=== PATIENT | female | born 1935 | race Caucasian/White ===

== ENCOUNTER 2017-12-03 15:01 | Outpatient (CLI) | payer OTHER | END 2017-12-03 15:09 | disposition home or self-care (01) | LOC: EDBD 15:01 → MAMO-SONO 15:01 | DX: Z12.31 Encounter for screening mammogram for malignant neoplasm of breast (principal); Z87.898 Personal history of other specified conditions; Z12.39 Encounter for other screening for malignant neoplasm of breast ==

== ENCOUNTER 2018-04-09 19:00 | Emergency (ER) | payer OTHER ==
[~2018-04-09] VITALS: Ht 152.4 cm; Wt 59.0 kg
[2018-04-09] MEDS ORDERED: JANUMET 50-5001 EACH (19:23)
[2018-04-09] MEDS ORDERED: COZAAR25 MG (19:23)
[2018-04-09] MEDS ORDERED: SIMVASTATIN20 MG (19:24)
[2018-04-09] MEDS ORDERED: SYNTHROID88 MCG (19:24)
[2018-04-09] MEDS ORDERED: ZOLOFT20 MG/1 ML (19:24)
[2018-04-09] MEDS ORDERED: ASPIR 8181 MG (19:24)
== END 2018-04-09 23:09 | disposition home or self-care (01) ==
LOC: ER 19:00
DX: S20.212A Contusion of left front wall of thorax, initial encounter (principal); S40.012A Contusion of left shoulder, initial encounter; S20.412A Abrasion of left back wall of thorax, initial encounter; W20.8XXA Other cause of strike by thrown, projected or falling object, initial encounter; Y93.89 Activity, other specified; Y92.018 Other place in single-family (private) house as the place of occurrence of the external cause; Y99.8 Other external cause status

== ENCOUNTER 2020-05-27 10:18 | Outpatient (CLI) | payer OTHER ==
[~2020-05-27 10:18] MED LIST: ASPIR 8181 MG; COZAAR25 MG; JANUMET 50-5001 EACH; SIMVASTATIN20 MG; SYNTHROID88 MCG; ZOLOFT20 MG/1 ML
== END 2020-05-27 10:24 | disposition home or self-care (01) ==
LOC: RAD 10:18
PROVIDERS: ATTEND Neuromusculoskeletal Medicine, Sports Medicine
DX: M77.32 Calcaneal spur, left foot (principal); M77.31 Calcaneal spur, right foot; S90.30XA Contusion of unspecified foot, initial encounter; M67.00 Short Achilles tendon (acquired), unspecified ankle; M20.41 Other hammer toe(s) (acquired), right foot; M20.42 Other hammer toe(s) (acquired), left foot

== ENCOUNTER 2020-11-14 09:51 | Outpatient (CLI) | payer OTHER | END 2020-11-14 10:45 | disposition home or self-care (01) | LOC: SONOGRAMA 09:51 | DX: N28.89 Other specified disorders of kidney and ureter (principal); N18.30 Chronic kidney disease, stage 3 unspecified; I12.9 Hypertensive chronic kidney disease with stage 1 through stage 4 chronic kidney disease, or unspecified chronic kidney disease ==

== ENCOUNTER 2021-02-22 08:05 | Outpatient (CLI) | payer OTHER | END 2021-02-22 08:10 | disposition home or self-care (01) | LOC: RAD 08:05 | DX: R07.89 Other chest pain (principal) ==

== ENCOUNTER 2021-05-22 08:36 | Outpatient (CLI) | payer OTHER | END 2021-05-22 08:39 | disposition home or self-care (01) | LOC: NUCLEAR 08:36 | PROVIDERS: ATTEND Internal Medicine Cardiovascular Disease | DX: I73.9 Peripheral vascular disease, unspecified (principal) ==

== ENCOUNTER 2022-05-03 10:17 | Emergency (ER) | payer OTHER ==
[~2022-05-03] VITALS: Ht 152.4 cm; Wt 53.5 kg
[2022-05-03] MEDS ORDERED: JANUVIA50 MG PO (10:26)
[2022-05-03] MEDS ORDERED: JARDIANCE10 MG PO (10:27)
[2022-05-03] MEDS ORDERED: LEXAPRO5 MG PO (10:28)
[2022-05-03] MEDS ORDERED: SYNTHROID75 MCG PO (10:28)
[2022-05-03] MEDS ORDERED: LOW DOSE ASPIRI81 M1 PO (10:29)
[2022-05-03] MEDS ORDERED: LOSARTAN POTAS100 MG PO (10:29)
[2022-05-03] MEDS ORDERED: GABAPENTIN300 M2 PO (10:29)
[2022-05-03] MEDS ORDERED: MIRTAZAPINE7.5 MG PO (10:30)
[2022-05-03] MEDS ORDERED: AMLODIPINE BESYL5 MG PO (10:30)
[2022-05-03] MEDS ORDERED: ZOCOR20 MG (10:31)
== END 2022-05-03 14:00 | disposition home or self-care (01) ==
LOC: ER 10:17
DX: S89.81XA Other specified injuries of right lower leg, initial encounter (principal); S79.811A Other specified injuries of right hip, initial encounter; S99.822A Other specified injuries of left foot, initial encounter; W19.XXXA Unspecified fall, initial encounter; Y93.89 Activity, other specified; Y92.89 Other specified places as the place of occurrence of the external cause; G89.11 Acute pain due to trauma; M25.561 Pain in right knee; M79.604 Pain in right leg; M79.672 Pain in left foot; I10 Essential (primary) hypertension; E03.9 Hypothyroidism, unspecified; E11.9 Type 2 diabetes mellitus without complications